=== PATIENT | female | born 1995 | race Caucasian/White ===

== ENCOUNTER 2021-02-13 19:12 | Emergency (ER) | payer OTHER ==
[2021-02-13] MEDS ORDERED: MOTRIN600 MG PO (21:54)
== END 2021-02-13 22:10 | disposition home or self-care (01) ==
LOC: FER 19:12
DX: S93.402A Sprain of unspecified ligament of left ankle, initial encounter (principal); Z88.1 Allergy status to other antibiotic agents; X50.0XXA Overexertion from strenuous movement or load, initial encounter; Y93.01 Activity, walking, marching and hiking; Y92.828 Other wilderness area as the place of occurrence of the external cause
CPT/HCPCS: 73610